=== PATIENT | male | born 1985 | race Two or more races ===

== ENCOUNTER 2021-01-20 07:31 | Emergency (ER) | payer MEDICAID ==
[~2021-01-20] VITALS: Ht 175.3 cm; Wt 93.4 kg
--- NOTE | 2021-01-20 07:31 | NUR ---
PT BIBRA 60 FOR POSSIBLE OPIATE OD PER EMS PT IS UNRESPONSIVE AND NARCAN 8MG INTRANASAL GIVEN ENDOSCOPY REGISTERED NURSE. PT IS AAOX0 RESPONSE TO PHYSICAL STIMULI, HOOKED TO SUBASSEMBLER, KEPT RESTED AND COMFORTABLE. WILL CONTINUE TO MONITOR.
[2021-01-20] MEDS ORDERED: ONDANSETRON HCL/PF 4 MG/2 ML VIAL ONE (07:38)
[2021-01-20] MEDS ORDERED: NALOXONE PREFILLED SYRINGE 2 MG/2 ML SYRINGE ONE (07:38)
--- NOTE | 2021-01-20 07:38 | NUR ---
PT SEEN AND EXAMINED BY
--- NOTE | 2021-01-20 07:45 | NUR ---
IV LINE ESTABLISHED BLOOD DRAWN AND SENT TO LAB.
[2021-01-20 07:57] LABS: BASOPHILS # (AUTO) 0.1 K/uL (0.0-0.2); BASOPHILS % (AUTO) 1.2 % (0.0-2.0); EOSINOPHILS % (AUTO) 3.7 % (0.0-6.0); HEMATOCRIT 43 % (39-51); HEMOGLOBIN 14.7 g/dL (13.5-17.5); LYMPHOCYTES # (AUTO) 2.8 K/uL (0.8-4.8); LYMPHOCYTES % (AUTO) 41.2 % (20.0-44.0); MEAN CORPUSCULAR HGB CONC 34 g/dl (31.0-36.0); MEAN CORPUSCULAR VOLUME 90 fL (80-96); MONOCYTES # (AUTO) 0.6 K/uL (0.1-1.30); MONOCYTES % (AUTO) 8.9 % (2.0-12.0); NEUTROPHILS # (AUTO) 3.1 K/uL (1.8-8.9); PLATELET COUNT (AUTO) 275 K/uL (150-450); RED BLOOD CELL COUNT(AUTO) 4.81 MIL/uL (4.5-6.0); WHITE BLOOD COUNT (AUTO) 6.8 K/uL (4.3-11.0)
[2021-01-20] MEDS ORDERED: ONDANSETRON HCL/PF 4 MG/2 ML VIAL IVP ONE (08:00)
[2021-01-20] MEDS ORDERED: IV NS 0.9% 1,000 ML BAG IV ONE (08:00)
[2021-01-20] MEDS ORDERED: NALOXONE HCL 0.4 MG/ML AMPUL IV ONE (08:00)
--- NOTE | 2021-01-20 08:10 | NUR ---
IV removed. Catheter intact and site benign. Pressure and 4x4 applied to site. No bleeding noted.
[2021-01-20 08:12] LABS: ALANINE AMINOTRANSFERASE 22 U/L (12-78); ALBUMIN 4.2 g/dL (3.4-5.0); ALCOHOL, BLOOD < 3 mg/dL (0-0); ALKALINE PHOSPHATASE 127 U/L (46-116); ASPARTATE AMINOTRANSFERASE 15 U/L (15-37); BILIRUBIN,DIRECT 0.1 mg/dL (0.0-0.2); BILIRUBIN,TOTAL 0.4 mg/dL (0.2-1.0); CALCIUM, SERUM 8.7 mg/dL (8.5-10.1); CARBON DIOXIDE 25 mmol/L (21-32); CHLORIDE 104 mmol/L (98-107); CREATININE 0.9 mg/dL (0.6-1.3); GLUCOSE 110 mg/dL (74-106); POTASSIUM 3.7 mmol/L (3.5-5.1); SODIUM SERUM 144 mmol/L (136-145); TOTAL PROTEIN, SERUM 8.3 g/dL (6.4-8.2); UREA NITROGEN, BLOOD 9 mg/dL (7-18)
[2021-01-20 08:13] VITALS: BP 129/74
[2021-01-20] MEDS ORDERED: NALO4SPR NS (08:13)
--- NOTE | 2021-01-20 08:13 | NUR ---
Note [email or web address] in ED - 01/20/21 at 0813 by NATALIO Patient does not wish to proceed with medical care recommended by ( ). Patient given information related to possible complications, up to and including , which could occur as a result of leaving the hospital at this time. Patient verbalizes understanding of risks involved due to leaving against medical advice. Patient has signed AMA form.
--- NOTE | 2021-01-20 08:13 | NUR ---
Patient does not wish to proceed with medical care recommended by Dr. LOPEZ. Patient given information related to possible complications, up to and including , which could occur as a result of leaving the hospital at this time. Patient verbalizes understanding of risks involved due to leaving against medical advice. Patient has signed AMA form.
== END 2021-01-20 08:14 | disposition left against medical advice (07) ==
LOC: ER 07:36
DX: T40.2X1A Poisoning by other opioids, accidental (unintentional), initial encounter (principal); R61 Generalized hyperhidrosis; R40.0 Somnolence; Y92.89 Other specified places as the place of occurrence of the external cause
CPT/HCPCS: 36415; 80048; 80076; 80320; 85025; 96361; 96374; 96375; 99284; J2310; J2405; J7030; G0480